=== PATIENT | female | born 1960 | race Caucasian/White ===

== ENCOUNTER 2016-06-16 20:02 | Emergency (ER) | payer OTHER ==
[~2016-06-16] VITALS: Ht 170.2 cm; Wt 118.2 kg
[~2016-06-16 20:02] MED LIST: BENA20 PO; FLUO-191 PO; Fluoxetine Hcl PO; METF500T4 PO; OLAN10TA3 PO; OLAN405V IM
[2016-06-16 20:25] LABS: GLUCOSE,POINT OF CARE 402 MG/DL (70-110)
[2016-06-16 20:38] LABS: BASOPHILS % (AUTO) 0.3 % (0.0-2.0); EOSINOPHILS % (AUTO) 1.7 % (1.0-6.0); HEMATOCRIT 41.2 % (36-46); HEMOGLOBIN 13.9 g/dL (12.0-16.0); LYMPHOCYTES # (AUTO) 2.3 K/uL (1.0-4.8); MEAN CORPUSCULAR HEMOGLOBIN 28.5 pg (26.0-34.0); MEAN CORPUSCULAR HGB CONC 33.7 G/dL (31.0-37.0); MEAN CORPUSCULAR VOLUME 85 fL (80-100); MONOCYTES # (AUTO) 0.6 K/uL (0.1-1.0); MONOCYTES % (AUTO) 7.8 % (2.0-9.0); NEUTROPHILS # (AUTO) 4.4 K/uL (1.8-7.7); NEUTROPHILS % (AUTO) 59.2 % (40.0-70.0); PLATELET COUNT (AUTO) 175 K/uL (150-450); RED BLOOD CELL COUNT(AUTO) 4.86 MIL/uL (4.00-5.20); RED CELL DISTRIBUTION WIDTH 13.5 % (11.5-14.5); WHITE BLOOD COUNT (AUTO) 7.5 K/uL (4.5-11.0)
[2016-06-16 20:43] LABS: ANION GAP 11 mmol/L (8-16); CALCIUM, TOTAL 9.4 mg/dL (8.8-10.5); CARBON DIOXIDE 30 mmol/L (22-29); CHLORIDE 97 mmol/L (98-107); CREATININE 0.95 mg/dL (0.60-1.30); GLOMERULAR FILTR. RATE CALC > 60 mL/min (>60); POTASSIUM 3.9 mmol/L (3.5-5.1); SODIUM SERUM 138 mmol/L (136-145); UREA NITROGEN, BLOOD 15 mg/dL (7-18)
[2016-06-16] MEDS ORDERED: INSULIN REGULAR, HUMAN 100 UNITS/ML SQ ONE (20:45)
[2016-06-16 20:49] LABS: ALANINE AMINOTRANSFERASE 29 U/L (12-78); ALBUMIN 3.8 g/dL (3.4-5.0); ASPARTATE AMINOTRANSFERASE 18 U/L (15-37); BILIRUBIN,TOTAL 0.2 mg/dL (0.1-1.0); TOTAL PROTEIN, SERUM 7.8 g/dL (6.4-8.2)
[2016-06-16] MEDS ORDERED: OLANZapine 5 MG TABLET PO ONE (21:00)
[2016-06-16 22:01] LABS: GLUCOSE,POINT OF CARE 404 MG/DL (70-110)
[2016-06-16 22:17] VITALS: BP 139/82
== END 2016-06-16 22:32 | disposition home or self-care (01) ==
LOC: EMS 20:03
DX: F20.9 Schizophrenia, unspecified (principal); R45.851 Suicidal ideations; E11.65 Type 2 diabetes mellitus with hyperglycemia; F32.9 Major depressive disorder, single episode, unspecified; I10 Essential (primary) hypertension; F17.210 Nicotine dependence, cigarettes, uncomplicated; F19.90 Other psychoactive substance use, unspecified, uncomplicated; Z88.6 Allergy status to analgesic agent
CPT/HCPCS: 36415; 80053; 80307; 82962; 85025; 96372; 99285; 99406; G0480; J1815

== ENCOUNTER 2017-08-14 00:28 | Inpatient (IN) | payer MEDICAID, OTHER ==
[~2017-08-14] VITALS: Ht 170.2 cm; Wt 86.2 kg
[2017-08-14 01:22] LABS: GLUCOSE,POINT OF CARE 439 MG/DL (70-110)
[2017-08-14 02:09] LABS: BASOPHILS % (AUTO) 0.5 % (0.0-2.0); EOSINOPHILS % (AUTO) 2.4 % (1.0-6.0); HEMATOCRIT 42.2 % (36-46); HEMOGLOBIN 14.1 g/dL (12.0-16.0); LYMPHOCYTES # (AUTO) 2.9 K/uL (1.0-4.8); LYMPHOCYTES % (AUTO) 42.7 % (22.0-44.0); MEAN CORPUSCULAR HEMOGLOBIN 27.6 pg (26.0-34.0); MEAN CORPUSCULAR HGB CONC 33.4 G/dL (31.0-37.0); MEAN CORPUSCULAR VOLUME 83 fL (80-100); MONOCYTES # (AUTO) 0.4 K/uL (0.1-1.0); NEUTROPHILS # (AUTO) 3.3 K/uL (1.8-7.7); NEUTROPHILS % (AUTO) 48.4 % (40.0-70.0); PLATELET COUNT (AUTO) 153 K/uL (150-450); RED CELL DISTRIBUTION WIDTH 14.1 % (11.5-14.5)
[2017-08-14 02:24] LABS: ALANINE AMINOTRANSFERASE 26 U/L (12-78); ALBUMIN 3.4 g/dL (3.4-5.0); ALKALINE PHOSPHATASE 151 U/L (46-116); ANION GAP 6 mmol/L (8-16); ASPARTATE AMINOTRANSFERASE 20 U/L (15-37); BILIRUBIN,TOTAL 0.3 mg/dL (0.1-1.0); CALCIUM, TOTAL 8.6 mg/dL (8.8-10.5); CARBON DIOXIDE 29 mmol/L (22-29); CHLORIDE 97 mmol/L (98-107); GLOMERULAR FILTR. RATE CALC > 60 mL/min (>60); POTASSIUM 4.1 mmol/L (3.5-5.1); SODIUM SERUM 132 mmol/L (136-145); TOTAL PROTEIN, SERUM 7.3 g/dL (6.4-8.2); UREA NITROGEN, BLOOD 15 mg/dL (7-18)
[2017-08-14 02:25] LABS: GLUCOSE,RANDOM 482 mg/dL (70-110)
[2017-08-14 02:28] LABS: AMPHET/METH SCREEN,URINE POSITIVE (NEGATIVE); BARBITURATE SCREEN, URINE NEGATIVE (NEGATIVE); BENZODIAZEPINES SCREEN,URINE NEGATIVE (NEGATIVE); CANNABINOID SCREEN,URINE NEGATIVE (NEGATIVE); COCAINE SCREEN,URINE NEGATIVE (NEGATIVE); METHADONE SCREEN, URINE NEGATIVE (NEGATIVE); OPIATE SCREEN,URINE NEGATIVE (NEGATIVE)
[2017-08-14 02:29] LABS: PHENCYCLIDINE SCREEN,URINE NEGATIVE (NEGATIVE)
[2017-08-14] MEDS ORDERED: INSULIN REGULAR, HUMAN 100 UNITS/ML SQ ONE (03:30)
[2017-08-14 04:28] LABS: GLUCOSE,POINT OF CARE 358 MG/DL (70-110)
[2017-08-14] MEDS ORDERED: LORazepam 1 MG TABLET PO ONE (04:30)
[2017-08-14] MEDS ORDERED: OLANZapine 5 MG TABLET PO ONE (04:30)
[2017-08-14] MEDS ORDERED: HALOPERIDOL 5 MG TABLET PO PRN (05:30)
[2017-08-14] MEDS ORDERED: ZOLPIDEM TARTRATE 10 MG TABLET PO PRN (05:30)
[2017-08-14] MEDS ORDERED: ACETAMINOPHEN 500 MG TABLET PO ONE (12:15)
[2017-08-14 18:18] LABS: GLUCOSE,POINT OF CARE 228 MG/DL (70-110)
[2017-08-14] MEDS ORDERED: DEXTROSE 50%-WATER 25 GM/50 ML SYRINGE IVP PRN (19:15)
[2017-08-14 19:38] VITALS: BP 121/83
[2017-08-14 21:52] LABS: GLUCOMETER DEV NAME(LOC) 3EI B; GLUCOSE,POINT OF CARE 279 MG/DL (70-110)
[2017-08-15 06:23] LABS: GLUCOMETER DEV NAME(LOC) 3EI B; GLUCOSE,POINT OF CARE 258 MG/DL (70-110)
[2017-08-15] MEDS: MetFORMIN HCL 500 MG TABLET PO SCH ×2 (06:49→17:30)
[2017-08-15] MEDS: INSULIN LISPRO 100 UNITS/ML SQ PRN (06:50)
[2017-08-15 07:26] LABS: HEMOGLOBIN A1C 12.1 % (4.5-6.2)
[2017-08-15 07:34] LABS: CHOL/HDL RATIO 2.1 (3.9-5.7)
[2017-08-15 08:00] VITALS: BP 121/60
[2017-08-15] MEDS: LORazepam 2 MG TABLET PO PRN (09:51)
[2017-08-15] MEDS: BENAZEPRIL HCL 20 MG TABLET PO SCH (09:51)
[2017-08-15 16:58] LABS: GLUCOMETER DEV NAME(LOC) 3EI B; GLUCOSE,POINT OF CARE 253 MG/DL (70-110)
[2017-08-15] MEDS: OLANZapine 10 MG TABLET PO SCH (21:00)
[2017-08-16] MEDS: MetFORMIN HCL 500 MG TABLET PO SCH ×2 (06:35→17:10)
[2017-08-16] MEDS: LORazepam 2 MG TABLET PO PRN (09:56)
[2017-08-16] MEDS: BENAZEPRIL HCL 20 MG TABLET PO SCH (09:56)
[2017-08-16] MEDS: FLUoxetine HCL 20 MG CAPSULE PO SCH (09:56)
[2017-08-16 11:48] LABS: GLUCOMETER DEV NAME(LOC) 3EI B; GLUCOSE,POINT OF CARE 223 MG/DL (70-110)
[2017-08-16] MEDS: INSULIN LISPRO 100 UNITS/ML SQ PRN ×2 (12:04→17:17)
[2017-08-16 17:17] LABS: GLUCOMETER DEV NAME(LOC) 3EI B; GLUCOSE,POINT OF CARE 228 MG/DL (70-110)
[2017-08-16] MEDS: OLANZapine 10 MG TABLET PO SCH (20:07)
[2017-08-16 20:42] LABS: GLUCOMETER DEV NAME(LOC) 3EI B; GLUCOSE,POINT OF CARE 107 MG/DL (70-110)
[2017-08-17] MEDS: MetFORMIN HCL 500 MG TABLET PO SCH ×2 (06:44→17:26)
[2017-08-17] MEDS: BENAZEPRIL HCL 20 MG TABLET PO SCH (10:46)
[2017-08-17] MEDS: FLUoxetine HCL 20 MG CAPSULE PO SCH (10:46)
[2017-08-17 11:43] LABS: GLUCOMETER DEV NAME(LOC) 3EI B; GLUCOSE,POINT OF CARE 197 MG/DL (70-110)
[2017-08-17] MEDS: INSULIN LISPRO 100 UNITS/ML SQ PRN ×3 (12:20→21:13)
[2017-08-17 17:23] LABS: GLUCOMETER DEV NAME(LOC) 3EI B; GLUCOSE,POINT OF CARE 172 MG/DL (70-110)
[2017-08-17 19:31] VITALS: BP 112/68
[2017-08-17] MEDS: OLANZapine 10 MG TABLET PO SCH (21:02)
[2017-08-17 21:12] LABS: GLUCOMETER DEV NAME(LOC) 3EI B; GLUCOSE,POINT OF CARE 162 MG/DL (70-110)
[2017-08-18 06:03] LABS: GLUCOMETER DEV NAME(LOC) 3EI B; GLUCOSE,POINT OF CARE 199 MG/DL (70-110)
[2017-08-18] MEDS: INSULIN LISPRO 100 UNITS/ML SQ PRN ×2 (06:38→13:21)
[2017-08-18] MEDS: MetFORMIN HCL 500 MG TABLET PO SCH ×2 (07:10→17:30)
[2017-08-18 09:35] VITALS: BP 104/59
[2017-08-18] MEDS: FLUoxetine HCL 20 MG CAPSULE PO SCH (09:58)
[2017-08-18] MEDS: BENAZEPRIL HCL 20 MG TABLET PO SCH (09:58)
[2017-08-18 11:17] LABS: GLUCOMETER DEV NAME(LOC) 3EI B; GLUCOSE,POINT OF CARE 180 MG/DL (70-110)
[2017-08-18] MEDS: OLANZapine 7.5 MG TABLET PO SCH (21:00)
[2017-08-18 22:17] VITALS: BP 95/54
[2017-08-19 05:43] LABS: GLUCOMETER DEV NAME(LOC) 3EI B; GLUCOSE,POINT OF CARE 213 MG/DL (70-110)
[2017-08-19] MEDS: MetFORMIN HCL 500 MG TABLET PO SCH ×2 (07:00→17:55)
[2017-08-19] MEDS: INSULIN LISPRO 100 UNITS/ML SQ PRN ×3 (07:13→17:30)
[2017-08-19 08:00] VITALS: BP 115/62
[2017-08-19] MEDS: FLUoxetine HCL 20 MG CAPSULE PO SCH (09:32)
[2017-08-19] MEDS: BENAZEPRIL HCL 20 MG TABLET PO SCH (09:32)
[2017-08-19 11:38] LABS: GLUCOMETER DEV NAME(LOC) 3EI B; GLUCOSE,POINT OF CARE 182 MG/DL (70-110)
[2017-08-19 16:43] LABS: GLUCOMETER DEV NAME(LOC) 3EI B; GLUCOSE,POINT OF CARE 158 MG/DL (70-110)
[2017-08-19 17:02] VITALS: BP 114/64
[2017-08-19] MEDS: OLANZapine 7.5 MG TABLET PO SCH (20:34)
[2017-08-20 05:47] LABS: GLUCOMETER DEV NAME(LOC) 3EI B; GLUCOSE,POINT OF CARE 202 MG/DL (70-110)
[2017-08-20] MEDS: MetFORMIN HCL 500 MG TABLET PO SCH ×2 (06:45→16:59)
[2017-08-20] MEDS: INSULIN LISPRO 100 UNITS/ML SQ PRN ×4 (06:52→21:14)
[2017-08-20 08:00] VITALS: BP 136/82
[2017-08-20] MEDS: FLUoxetine HCL 20 MG CAPSULE PO SCH (09:18)
[2017-08-20] MEDS: BENAZEPRIL HCL 20 MG TABLET PO SCH (09:18)
[2017-08-20 11:58] LABS: GLUCOMETER DEV NAME(LOC) 3EI B; GLUCOSE,POINT OF CARE 197 MG/DL (70-110)
[2017-08-20 17:12] LABS: GLUCOMETER DEV NAME(LOC) 3EI B; GLUCOSE,POINT OF CARE 259 MG/DL (70-110)
[2017-08-20 17:16] VITALS: BP 112/66
[2017-08-20] MEDS: OLANZapine 7.5 MG TABLET PO SCH (21:02)
[2017-08-20 21:18] LABS: GLUCOMETER DEV NAME(LOC) 3EI B; GLUCOSE,POINT OF CARE 192 MG/DL (70-110)
[2017-08-21 06:19] LABS: GLUCOMETER DEV NAME(LOC) 3EI B; GLUCOSE,POINT OF CARE 177 MG/DL (70-110)
[2017-08-21] MEDS: INSULIN LISPRO 100 UNITS/ML SQ PRN ×4 (06:57→21:20)
[2017-08-21] MEDS: MetFORMIN HCL 500 MG TABLET PO SCH ×2 (06:57→16:30)
[2017-08-21] MEDS: FLUoxetine HCL 20 MG CAPSULE PO SCH (09:37)
[2017-08-21] MEDS: BENAZEPRIL HCL 20 MG TABLET PO SCH (09:37)
[2017-08-21 10:33] VITALS: BP 124/86
[2017-08-21 11:48] LABS: GLUCOMETER DEV NAME(LOC) 3EI B; GLUCOSE,POINT OF CARE 157 MG/DL (70-110)
[2017-08-21 17:05] VITALS: BP 140/80
[2017-08-21 17:22] LABS: GLUCOMETER DEV NAME(LOC) 3EI B; GLUCOSE,POINT OF CARE 185 MG/DL (70-110)
[2017-08-21] MEDS: OLANZapine 7.5 MG TABLET PO SCH (20:51)
[2017-08-21 21:17] LABS: GLUCOMETER DEV NAME(LOC) 3EI B; GLUCOSE,POINT OF CARE 141 MG/DL (70-110)
[2017-08-22 06:32] LABS: GLUCOMETER DEV NAME(LOC) 3EI B; GLUCOSE,POINT OF CARE 192 MG/DL (70-110)
[2017-08-22] MEDS: INSULIN LISPRO 100 UNITS/ML SQ PRN ×4 (06:49→21:29)
[2017-08-22] MEDS: MetFORMIN HCL 500 MG TABLET PO SCH ×2 (06:50→17:21)
[2017-08-22 08:05] VITALS: BP 120/72
[2017-08-22] MEDS: FLUoxetine HCL 20 MG CAPSULE PO SCH (09:18)
[2017-08-22] MEDS: BENAZEPRIL HCL 20 MG TABLET PO SCH (09:18)
[2017-08-22 11:54] LABS: GLUCOMETER DEV NAME(LOC) 3EI B; GLUCOSE,POINT OF CARE 180 MG/DL (70-110)
[2017-08-22 17:32] LABS: GLUCOMETER DEV NAME(LOC) 3EI B; GLUCOSE,POINT OF CARE 176 MG/DL (70-110)
[2017-08-22 20:12] VITALS: BP 106/62
[2017-08-22] MEDS: OLANZapine 7.5 MG TABLET PO SCH (20:50)
[2017-08-22 21:17] LABS: GLUCOMETER DEV NAME(LOC) 3EI B; GLUCOSE,POINT OF CARE 198 MG/DL (70-110)
[2017-08-23 05:37] LABS: GLUCOMETER DEV NAME(LOC) 3EI B; GLUCOSE,POINT OF CARE 197 MG/DL (70-110)
[2017-08-23] MEDS: MetFORMIN HCL 500 MG TABLET PO SCH ×2 (06:52→17:51)
[2017-08-23] MEDS: INSULIN LISPRO 100 UNITS/ML SQ PRN ×3 (06:53→21:16)
[2017-08-23 08:00] VITALS: BP 145/89
[2017-08-23] MEDS: BENAZEPRIL HCL 20 MG TABLET PO SCH (09:37)
[2017-08-23] MEDS: FLUoxetine HCL 20 MG CAPSULE PO SCH (09:37)
[2017-08-23 11:17] LABS: GLUCOMETER DEV NAME(LOC) 3EI B; GLUCOSE,POINT OF CARE 248 MG/DL (70-110)
[2017-08-23 17:22] LABS: GLUCOMETER DEV NAME(LOC) 3EI B; GLUCOSE,POINT OF CARE 123 MG/DL (70-110)
[2017-08-23 21:07] LABS: GLUCOMETER DEV NAME(LOC) 3EI B; GLUCOSE,POINT OF CARE 373 MG/DL (70-110)
[2017-08-23] MEDS: OLANZapine 7.5 MG TABLET PO SCH (21:16)
[2017-08-24 05:22] LABS: GLUCOMETER DEV NAME(LOC) 3EI B; GLUCOSE,POINT OF CARE 225 MG/DL (70-110)
[2017-08-24] MEDS: MetFORMIN HCL 500 MG TABLET PO SCH ×2 (07:02→16:46)
[2017-08-24] MEDS: INSULIN LISPRO 100 UNITS/ML SQ PRN ×3 (07:02→21:24)
[2017-08-24] MEDS: BENAZEPRIL HCL 20 MG TABLET PO SCH (09:00)
[2017-08-24 09:16] VITALS: BP 112/38
[2017-08-24] MEDS: FLUoxetine HCL 20 MG CAPSULE PO SCH (09:54)
[2017-08-24 17:07] LABS: GLUCOMETER DEV NAME(LOC) 3EI B; GLUCOSE,POINT OF CARE 203 MG/DL (70-110)
[2017-08-24] MEDS: OLANZapine 7.5 MG TABLET PO SCH (21:14)
[2017-08-24 22:03] LABS: GLUCOMETER DEV NAME(LOC) 3EI B; GLUCOSE,POINT OF CARE 170 MG/DL (70-110)
[2017-08-25 05:28] LABS: GLUCOMETER DEV NAME(LOC) 3EI B; GLUCOSE,POINT OF CARE 221 MG/DL (70-110)
[2017-08-25] MEDS: MetFORMIN HCL 500 MG TABLET PO SCH ×2 (06:41→18:13)
[2017-08-25] MEDS: INSULIN LISPRO 100 UNITS/ML SQ PRN ×3 (06:49→18:14)
[2017-08-25] MEDS: BENAZEPRIL HCL 20 MG TABLET PO SCH (09:00)
[2017-08-25] MEDS: FLUoxetine HCL 20 MG CAPSULE PO SCH (09:59)
[2017-08-25 10:05] VITALS: BP 102/56
[2017-08-25 11:33] LABS: GLUCOMETER DEV NAME(LOC) 3EI B; GLUCOSE,POINT OF CARE 182 MG/DL (70-110)
[2017-08-25 16:56] LABS: GLUCOMETER DEV NAME(LOC) 3EI B; GLUCOSE,POINT OF CARE 172 MG/DL (70-110)
[2017-08-25 17:15] VITALS: BP 109/64
[2017-08-25 21:43] LABS: GLUCOMETER DEV NAME(LOC) 3EI B; GLUCOSE,POINT OF CARE 92 MG/DL (70-110)
[2017-08-25] MEDS: OLANZapine 7.5 MG TABLET PO SCH (21:47)
[2017-08-26 05:37] LABS: GLUCOMETER DEV NAME(LOC) 3EI B; GLUCOSE,POINT OF CARE 183 MG/DL (70-110)
[2017-08-26] MEDS: MetFORMIN HCL 500 MG TABLET PO SCH ×2 (06:42→17:29)
[2017-08-26] MEDS: INSULIN LISPRO 100 UNITS/ML SQ PRN ×4 (06:43→21:44)
[2017-08-26 09:17] VITALS: BP 109/56
[2017-08-26] MEDS: FLUoxetine HCL 20 MG CAPSULE PO SCH (10:11)
[2017-08-26] MEDS: BENAZEPRIL HCL 20 MG TABLET PO SCH (10:12)
[2017-08-26 16:44] VITALS: BP 98/57
[2017-08-26 16:58] LABS: GLUCOMETER DEV NAME(LOC) 3EI B; GLUCOSE,POINT OF CARE 270 MG/DL (70-110)
[2017-08-26] MEDS: OLANZapine 7.5 MG TABLET PO SCH (20:32)
[2017-08-26 20:43] LABS: GLUCOMETER DEV NAME(LOC) 3EI B; GLUCOSE,POINT OF CARE 224 MG/DL (70-110)
[2017-08-27 05:53] LABS: GLUCOMETER DEV NAME(LOC) 3EI B; GLUCOSE,POINT OF CARE 189 MG/DL (70-110)
[2017-08-27] MEDS: INSULIN LISPRO 100 UNITS/ML SQ PRN ×4 (06:49→20:28)
[2017-08-27] MEDS: MetFORMIN HCL 500 MG TABLET PO SCH ×2 (06:50→17:22)
[2017-08-27 09:17] VITALS: BP 119/71
[2017-08-27] MEDS: BENAZEPRIL HCL 20 MG TABLET PO SCH (09:21)
[2017-08-27] MEDS: FLUoxetine HCL 20 MG CAPSULE PO SCH (09:21)
[2017-08-27 11:43] LABS: GLUCOMETER DEV NAME(LOC) 3EI B; GLUCOSE,POINT OF CARE 157 MG/DL (70-110)
[2017-08-27 16:08] VITALS: BP 102/52
[2017-08-27 17:03] LABS: GLUCOMETER DEV NAME(LOC) 3EI B; GLUCOSE,POINT OF CARE 189 MG/DL (70-110)
[2017-08-27] MEDS: OLANZapine 7.5 MG TABLET PO SCH (20:27)
[2017-08-27 20:42] LABS: GLUCOMETER DEV NAME(LOC) 3EI B; GLUCOSE,POINT OF CARE 195 MG/DL (70-110)
[2017-08-28 05:33] LABS: GLUCOMETER DEV NAME(LOC) 3EI B; GLUCOSE,POINT OF CARE 191 MG/DL (70-110)
[2017-08-28] MEDS: MetFORMIN HCL 500 MG TABLET PO SCH (06:43)
[2017-08-28] MEDS: INSULIN LISPRO 100 UNITS/ML SQ PRN ×2 (07:06→12:01)
[2017-08-28 08:00] VITALS: BP 110/70
[2017-08-28] MEDS ORDERED: FLUO-191 PO (09:02)
[2017-08-28] MEDS ORDERED: OLAN7.5T9 PO (09:02)
[2017-08-28] MEDS: BENAZEPRIL HCL 20 MG TABLET PO SCH (09:23)
[2017-08-28] MEDS: FLUoxetine HCL 20 MG CAPSULE PO SCH (09:24)
[2017-08-28 12:03] LABS: GLUCOMETER DEV NAME(LOC) 3EI B; GLUCOSE,POINT OF CARE 215 MG/DL (70-110)
== END 2017-08-28 14:20 | disposition home or self-care (01) | DRG 750 ==
LOC: EMS 00:29 → 3EI 17:30
DX: F25.1 Schizoaffective disorder, depressive type (principal); R45.851 Suicidal ideations; B19.10 Unspecified viral hepatitis B without hepatic coma; E11.65 Type 2 diabetes mellitus with hyperglycemia; F32.9 Major depressive disorder, single episode, unspecified; I10 Essential (primary) hypertension; B15.9 Hepatitis A without hepatic coma; F15.10 Other stimulant abuse, uncomplicated; J44.9 Chronic obstructive pulmonary disease, unspecified; F17.210 Nicotine dependence, cigarettes, uncomplicated; Z79.899 Other long term (current) drug therapy; Z88.5 Allergy status to narcotic agent
CPT/HCPCS: 82962; 83036; 96372; 99285; G0480; J1815

== ENCOUNTER 2017-12-09 10:40 | Inpatient (IN) | payer MEDICAID, OTHER ==
[~2017-12-09] VITALS: Ht 175.3 cm; Wt 88.5 kg
[~2017-12-09 10:40] MED LIST changes: -Fluoxetine Hcl PO; -METF500T4 PO; +METF500T6 PO; -OLAN10TA3 PO; -OLAN405V IM; +OLAN7.5T9 PO
[2017-12-09] MEDS ORDERED: LORazepam 2 MG TABLET PO ONE (12:15)
[2017-12-09] MEDS ORDERED: HALOPERIDOL 5 MG TABLET PO ONE (12:15)
[2017-12-09] MEDS ORDERED: VENL25TA47 PO (12:16)
[2017-12-09] MEDS ORDERED: BENZ0.5T44 PO (12:16)
[2017-12-09 12:51] LABS: BASOPHILS % (AUTO) 0.5 % (0.0-2.0); EOSINOPHILS % (AUTO) 3.9 % (1.0-6.0); HEMATOCRIT 36.9 % (36-46); HEMOGLOBIN 12.8 g/dL (12.0-16.0); LYMPHOCYTES # (AUTO) 2.2 K/uL (1.0-4.8); LYMPHOCYTES % (AUTO) 41.2 % (22.0-44.0); MEAN CORPUSCULAR HEMOGLOBIN 28.3 pg (26.0-34.0); MEAN CORPUSCULAR HGB CONC 34.7 G/dL (31.0-37.0); MEAN CORPUSCULAR VOLUME 82 fL (80-100); MONOCYTES # (AUTO) 0.4 K/uL (0.1-1.0); MONOCYTES % (AUTO) 7.3 % (2.0-9.0); NEUTROPHILS # (AUTO) 2.5 K/uL (1.8-7.7); NEUTROPHILS % (AUTO) 47.1 % (40.0-70.0); PLATELET COUNT (AUTO) 153 K/uL (150-450); RED BLOOD CELL COUNT(AUTO) 4.52 MIL/uL (4.00-5.20); RED CELL DISTRIBUTION WIDTH 14.3 % (11.5-14.5)
[2017-12-09 13:00] LABS: AMPHET/METH SCREEN,URINE POSITIVE (NEGATIVE); BARBITURATE SCREEN, URINE NEGATIVE (NEGATIVE); BENZODIAZEPINES SCREEN,URINE NEGATIVE (NEGATIVE); CANNABINOID SCREEN,URINE NEGATIVE (NEGATIVE); COCAINE SCREEN,URINE NEGATIVE (NEGATIVE); METHADONE SCREEN, URINE NEGATIVE (NEGATIVE); OPIATE SCREEN,URINE NEGATIVE (NEGATIVE); PHENCYCLIDINE SCREEN,URINE NEGATIVE (NEGATIVE)
[2017-12-09 13:01] LABS: ANION GAP 11 mmol/L (8-16); CARBON DIOXIDE 25 mmol/L (22-29); CHLORIDE 99 mmol/L (98-107); CREATININE 0.62 mg/dL (0.60-1.30); GLOMERULAR FILTR. RATE CALC > 60 mL/min (>60); GLUCOSE,RANDOM 280 mg/dL (70-110); POTASSIUM 3.7 mmol/L (3.5-5.1); SODIUM SERUM 135 mmol/L (136-145); UREA NITROGEN, BLOOD 16 mg/dL (7-18)
[2017-12-09 13:07] LABS: ALANINE AMINOTRANSFERASE 27 U/L (12-78); ALBUMIN 3.2 g/dL (3.4-5.0); ALKALINE PHOSPHATASE 152 U/L (46-116); ASPARTATE AMINOTRANSFERASE 18 U/L (15-37); BILIRUBIN,TOTAL 0.3 mg/dL (0.1-1.0); TOTAL PROTEIN, SERUM 6.8 g/dL (6.4-8.2)
[2017-12-09] MEDS ORDERED: HALOPERIDOL 5 MG TABLET PO PRN (14:00)
[2017-12-09] MEDS ORDERED: ZOLPIDEM TARTRATE 10 MG TABLET PO PRN (14:00)
[2017-12-09 16:28] LABS: GLUCOSE,POINT OF CARE 312 MG/DL (70-110)
[2017-12-09 19:30] VITALS: BP 117/69
[2017-12-09] MEDS: OLANZapine 7.5 MG TABLET PO SCH (20:35)
[2017-12-09 20:44] LABS: GLUCOMETER DEV NAME(LOC) BV2S 2; GLUCOSE,POINT OF CARE 216 MG/DL (70-110)
[2017-12-09] MEDS ORDERED: CloNIDine HCL 0.1 MG TABLET PO PRN (20:45)
[2017-12-09] MEDS ORDERED: GuaiFENesin/D-METHORPHAN [SUGAR-FREE] 200-20MG/10 ML SYRUP UDCUP PO PRN (20:45)
[2017-12-09] MEDS ORDERED: ACETAMINOPHEN 325 MG TABLET PO PRN (20:45)
[2017-12-09] MEDS ORDERED: MAG HYDROX/AL HYDROX/SIMETH ES 30 ML SUSPENSION UDCUP PO PRN (20:45)
[2017-12-09] MEDS ORDERED: MAGNESIUM HYDROXIDE SUSPENSION 30 ML UDCUP PO PRN (20:45)
[2017-12-09] MEDS ORDERED: PETROLATUM,WHITE 71 GM JELLY TP PRN (20:45)
[2017-12-09] MEDS ORDERED: LOPERAMIDE HCL 2 MG CAPSULE PO PRN (20:45)
[2017-12-09] MEDS ORDERED: GLUCAGON,HUMAN RECOMBINANT 1 MG VIAL IM PRN (21:00)
[2017-12-09] MEDS: INSULIN LISPRO 100 UNITS/ML SQ PRN (21:00)
[2017-12-10] MEDS ORDERED: PNEUMOCOCCAL VACCINE POLYVALENT 0.5 ML VIAL [PPSV23] IM ONE (00:45)
[2017-12-10 01:33] VITALS: BP 121/62
[2017-12-10 08:26] VITALS: BP 120/77
[2017-12-10] MEDS: FLUoxetine HCL 20 MG CAPSULE PO SCH (08:46)
[2017-12-10] MEDS: NICOTINE 21 MG/24 HOUR PATCH TD SCH (08:50)
[2017-12-10] MEDS: LORazepam 2 MG TABLET PO PRN (10:00)
[2017-12-10] MEDS: INSULIN LISPRO 100 UNITS/ML SQ PRN ×3 (11:22→20:24)
[2017-12-10 14:55] LABS: GLUCOMETER DEV NAME(LOC) BV2S 2; GLUCOSE,POINT OF CARE 256 MG/DL (70-110)
[2017-12-10 16:12] VITALS: BP 120/65
[2017-12-10] MEDS: MetFORMIN HCL 500 MG TABLET PO SCH (16:29)
[2017-12-10 16:43] LABS: GLUCOMETER DEV NAME(LOC) BV2S 2; GLUCOSE,POINT OF CARE 195 MG/DL (70-110)
[2017-12-10] MEDS: OLANZapine 7.5 MG TABLET PO SCH (20:21)
[2017-12-10 20:39] LABS: GLUCOMETER DEV NAME(LOC) BV2S 2; GLUCOSE,POINT OF CARE 208 MG/DL (70-110)
[2017-12-11 02:15] VITALS: BP 121/68
[2017-12-11 06:19] LABS: GLUCOMETER DEV NAME(LOC) BV2S 2; GLUCOSE,POINT OF CARE 235 MG/DL (70-110)
[2017-12-11] MEDS: MetFORMIN HCL 500 MG TABLET PO SCH ×2 (06:59→16:38)
[2017-12-11] MEDS: INSULIN LISPRO 100 UNITS/ML SQ PRN ×4 (07:00→20:39)
[2017-12-11 08:01] VITALS: BP 117/74
[2017-12-11] MEDS: NICOTINE 21 MG/24 HOUR PATCH TD SCH (09:00)
[2017-12-11 09:02] LABS: HEMOGLOBIN A1C 11.3 % (4.5-6.2)
[2017-12-11] MEDS: BENAZEPRIL HCL 20 MG TABLET PO SCH (09:10)
[2017-12-11] MEDS: FLUoxetine HCL 20 MG CAPSULE PO SCH (09:10)
[2017-12-11 10:04] LABS: CHOL/HDL RATIO 2.2 (3.9-5.7); THYROID STIMULATING HORMONE 1.67 uIU/mL (0.36-3.74)
[2017-12-11] MEDS: LORazepam 2 MG TABLET PO PRN (10:44)
[2017-12-11 14:23] LABS: GLUCOMETER DEV NAME(LOC) BV2S 2; GLUCOSE,POINT OF CARE 195 MG/DL (70-110)
[2017-12-11 16:42] VITALS: BP 107/79
[2017-12-11 16:59] LABS: GLUCOMETER DEV NAME(LOC) BV2S 2; GLUCOSE,POINT OF CARE 308 MG/DL (70-110)
[2017-12-11] MEDS: OLANZapine 10 MG TABLET PO SCH (20:30)
[2017-12-11 20:53] LABS: GLUCOMETER DEV NAME(LOC) BV2S 2; GLUCOSE,POINT OF CARE 162 MG/DL (70-110)
[2017-12-12 05:17] VITALS: BP 110/68
[2017-12-12 06:04] LABS: GLUCOMETER DEV NAME(LOC) BV2S 2; GLUCOSE,POINT OF CARE 195 MG/DL (70-110)
[2017-12-12] MEDS: MetFORMIN HCL 500 MG TABLET PO SCH ×2 (06:29→16:21)
[2017-12-12] MEDS: INSULIN LISPRO 100 UNITS/ML SQ PRN ×4 (06:30→20:40)
[2017-12-12 08:18] VITALS: BP 110/61
[2017-12-12] MEDS: NICOTINE 21 MG/24 HOUR PATCH TD SCH (09:00)
[2017-12-12] MEDS: BENAZEPRIL HCL 20 MG TABLET PO SCH (09:08)
[2017-12-12] MEDS: FLUoxetine HCL 20 MG CAPSULE PO SCH (09:08)
[2017-12-12 13:18] LABS: GLUCOMETER DEV NAME(LOC) BV2S 2; GLUCOSE,POINT OF CARE 224 MG/DL (70-110)
[2017-12-12 16:00] VITALS: BP 109/67
[2017-12-12 16:38] LABS: GLUCOMETER DEV NAME(LOC) BV2S 2; GLUCOSE,POINT OF CARE 229 MG/DL (70-110)
[2017-12-12] MEDS: LORazepam 2 MG TABLET PO PRN (17:56)
[2017-12-12] MEDS: OLANZapine 10 MG TABLET PO SCH (20:34)
[2017-12-12 20:48] LABS: GLUCOMETER DEV NAME(LOC) BV2S 2; GLUCOSE,POINT OF CARE 253 MG/DL (70-110)
[2017-12-13 05:41] VITALS: BP 110/68
[2017-12-13] MEDS: MetFORMIN HCL 500 MG TABLET PO SCH ×2 (06:36→17:08)
[2017-12-13] MEDS: INSULIN LISPRO 100 UNITS/ML SQ PRN ×4 (06:37→20:51)
[2017-12-13 06:43] LABS: GLUCOMETER DEV NAME(LOC) BV2S 2; GLUCOSE,POINT OF CARE 212 MG/DL (70-110)
[2017-12-13 08:03] VITALS: BP 111/52
[2017-12-13] MEDS: FLUoxetine HCL 20 MG CAPSULE PO SCH (08:15)
[2017-12-13] MEDS: BENAZEPRIL HCL 20 MG TABLET PO SCH (08:15)
[2017-12-13] MEDS: NICOTINE 21 MG/24 HOUR PATCH TD SCH (08:18)
[2017-12-13 11:43] LABS: GLUCOMETER DEV NAME(LOC) BV2S 2; GLUCOSE,POINT OF CARE 169 MG/DL (70-110)
[2017-12-13 16:09] VITALS: BP 112/65
[2017-12-13 16:49] LABS: GLUCOMETER DEV NAME(LOC) BV2S 2; GLUCOSE,POINT OF CARE 184 MG/DL (70-110)
[2017-12-13] MEDS: OLANZapine 10 MG TABLET PO SCH (20:32)
[2017-12-13 20:48] LABS: GLUCOMETER DEV NAME(LOC) BV2S 2; GLUCOSE,POINT OF CARE 163 MG/DL (70-110)
[2017-12-14 00:35] VITALS: BP 112/67
[2017-12-14] MEDS: LORazepam 2 MG TABLET PO PRN ×2 (00:39→16:57)
[2017-12-14 06:14] LABS: GLUCOMETER DEV NAME(LOC) BV2S 2; GLUCOSE,POINT OF CARE 177 MG/DL (70-110)
[2017-12-14] MEDS: MetFORMIN HCL 500 MG TABLET PO SCH ×2 (06:52→16:29)
[2017-12-14] MEDS: INSULIN LISPRO 100 UNITS/ML SQ PRN ×4 (06:55→20:45)
[2017-12-14] MEDS: NICOTINE 21 MG/24 HOUR PATCH TD SCH (09:00)
[2017-12-14 09:02] VITALS: BP 116/67
[2017-12-14] MEDS: FLUoxetine HCL 20 MG CAPSULE PO SCH (09:51)
[2017-12-14] MEDS: BENAZEPRIL HCL 20 MG TABLET PO SCH (09:51)
[2017-12-14 11:59] LABS: GLUCOMETER DEV NAME(LOC) BV2S 2; GLUCOSE,POINT OF CARE 218 MG/DL (70-110)
[2017-12-14 16:08] VITALS: BP 109/65
[2017-12-14 16:58] LABS: GLUCOMETER DEV NAME(LOC) BV2S 2; GLUCOSE,POINT OF CARE 172 MG/DL (70-110)
[2017-12-14] MEDS: OLANZapine 10 MG TABLET PO SCH (20:16)
[2017-12-14 20:54] LABS: GLUCOMETER DEV NAME(LOC) BV2S 2; GLUCOSE,POINT OF CARE 217 MG/DL (70-110)
[2017-12-15 00:09] VITALS: BP 118/62
[2017-12-15] MEDS: MetFORMIN HCL 500 MG TABLET PO SCH ×2 (07:02→16:29)
[2017-12-15 08:14] VITALS: BP 111/60
[2017-12-15] MEDS: BENAZEPRIL HCL 20 MG TABLET PO SCH (09:00)
[2017-12-15] MEDS: NICOTINE 21 MG/24 HOUR PATCH TD SCH (09:00)
[2017-12-15] MEDS: FLUoxetine HCL 20 MG CAPSULE PO SCH (09:56)
[2017-12-15 10:00] VITALS: BP 109/56
[2017-12-15] MEDS: INSULIN LISPRO 100 UNITS/ML SQ PRN ×3 (11:45→20:12)
[2017-12-15 11:48] LABS: GLUCOMETER DEV NAME(LOC) BV2S 2; GLUCOSE,POINT OF CARE 191 MG/DL (70-110)
[2017-12-15] MEDS: LORazepam 2 MG TABLET PO PRN (16:31)
[2017-12-15 17:04] LABS: GLUCOMETER DEV NAME(LOC) BV2S 2; GLUCOSE,POINT OF CARE 239 MG/DL (70-110)
[2017-12-15 17:56] VITALS: BP 123/72
[2017-12-15] MEDS: OLANZapine 10 MG TABLET PO SCH (20:04)
[2017-12-15 20:38] LABS: GLUCOMETER DEV NAME(LOC) BV2S 2; GLUCOSE,POINT OF CARE 188 MG/DL (70-110)
[2017-12-16 00:31] VITALS: BP 115/62
[2017-12-16] MEDS ORDERED: OLAN10TA3 PO (01:46)
[2017-12-16] MEDS ORDERED: BENA20 PO (01:46)
[2017-12-16] MEDS ORDERED: FLUO-191 PO (01:46)
[2017-12-16] MEDS ORDERED: METF500T6 PO (01:46)
[2017-12-16 06:19] LABS: GLUCOMETER DEV NAME(LOC) BV2S 2; GLUCOSE,POINT OF CARE 217 MG/DL (70-110)
[2017-12-16] MEDS: MetFORMIN HCL 500 MG TABLET PO SCH (07:02)
[2017-12-16] MEDS: INSULIN LISPRO 100 UNITS/ML SQ PRN (07:03)
[2017-12-16] MEDS: FLUoxetine HCL 20 MG CAPSULE PO SCH (08:09)
[2017-12-16] MEDS: BENAZEPRIL HCL 20 MG TABLET PO SCH (08:09)
[2017-12-16] MEDS: NICOTINE 21 MG/24 HOUR PATCH TD SCH (08:15)
[2017-12-16 08:24] VITALS: BP 121/78
== END 2017-12-16 09:45 | disposition home or self-care (01) | DRG 750 ==
LOC: EMS 10:41 → B2S 18:19
PROVIDERS: ADMIT Psychiatry & Neurology Psychiatry; ATTEND Psychiatry & Neurology Psychiatry
DX: F25.1 Schizoaffective disorder, depressive type (principal); R45.851 Suicidal ideations; B19.10 Unspecified viral hepatitis B without hepatic coma; F15.20 Other stimulant dependence, uncomplicated; E11.9 Type 2 diabetes mellitus without complications; R45.87 Impulsiveness; F60.3 Borderline personality disorder; I10 Essential (primary) hypertension; J44.9 Chronic obstructive pulmonary disease, unspecified; B15.9 Hepatitis A without hepatic coma; F41.9 Anxiety disorder, unspecified; F17.200 Nicotine dependence, unspecified, uncomplicated; Z88.6 Allergy status to analgesic agent; Z59.0 Homelessness; Z71.89 Other specified counseling; Z79.899 Other long term (current) drug therapy
CPT/HCPCS: 83036; 84443; 87081; 90471; 99285; G0480

== ENCOUNTER 2018-04-10 00:07 | Inpatient (IN) | payer MEDICAID, OTHER ==
[~2018-04-10] VITALS: Ht 170.2 cm; Wt 97.1 kg
[~2018-04-10 00:07] MED LIST changes: +METF-960 PO; -METF500T6 PO; +OLAN10TA3 PO; -OLAN7.5T9 PO
[2018-04-10 00:48] LABS: BASOPHILS % (AUTO) 0.4 % (0.0-2.0); EOSINOPHILS % (AUTO) 3.8 % (1.0-6.0); HEMATOCRIT 43.7 % (36-46); HEMOGLOBIN 14.6 g/dL (12.0-16.0); LYMPHOCYTES # (AUTO) 2.9 K/uL (1.0-4.8); LYMPHOCYTES % (AUTO) 38.1 % (22.0-44.0); MEAN CORPUSCULAR HEMOGLOBIN 28.3 pg (26.0-34.0); MEAN CORPUSCULAR HGB CONC 33.4 G/dL (31.0-37.0); MEAN CORPUSCULAR VOLUME 85 fL (80-100); MONOCYTES # (AUTO) 0.5 K/uL (0.1-1.0); MONOCYTES % (AUTO) 6.5 % (2.0-9.0); NEUTROPHILS # (AUTO) 3.9 K/uL (1.8-7.7); NEUTROPHILS % (AUTO) 51.2 % (40.0-70.0); PLATELET COUNT (AUTO) 193 K/uL (150-450); RED BLOOD CELL COUNT(AUTO) 5.17 MIL/uL (4.00-5.20); RED CELL DISTRIBUTION WIDTH 14.1 % (11.5-14.5)
[2018-04-10 01:07] LABS: AMPHET/METH SCREEN,URINE POSITIVE (NEGATIVE); BARBITURATE SCREEN, URINE NEGATIVE (NEGATIVE); BENZODIAZEPINES SCREEN,URINE NEGATIVE (NEGATIVE); CANNABINOID SCREEN,URINE NEGATIVE (NEGATIVE); COCAINE SCREEN,URINE NEGATIVE (NEGATIVE); METHADONE SCREEN, URINE NEGATIVE (NEGATIVE); OPIATE SCREEN,URINE NEGATIVE (NEGATIVE)
[2018-04-10 01:08] LABS: ALANINE AMINOTRANSFERASE 36 U/L (12-78); ALBUMIN 3.4 g/dL (3.4-5.0); ALKALINE PHOSPHATASE 170 U/L (46-116); ANION GAP 9 mmol/L (8-16); ASPARTATE AMINOTRANSFERASE 20 U/L (15-37); BILIRUBIN,TOTAL 0.2 mg/dL (0.1-1.0); CALCIUM, TOTAL 8.9 mg/dL (8.8-10.5); CARBON DIOXIDE 29 mmol/L (22-29); CHLORIDE 96 mmol/L (98-107); CREATININE 0.89 mg/dL (0.60-1.30); GLOMERULAR FILTR. RATE CALC > 60 mL/min (>60); POTASSIUM 3.8 mmol/L (3.5-5.1); SODIUM SERUM 134 mmol/L (136-145); TOTAL PROTEIN, SERUM 7.3 g/dL (6.4-8.2); UREA NITROGEN, BLOOD 9 mg/dL (7-18)
[2018-04-10 01:10] LABS: GLUCOSE,RANDOM 549 mg/dL (70-110)
[2018-04-10 01:11] LABS: PHENCYCLIDINE SCREEN,URINE NEGATIVE (NEGATIVE)
[2018-04-10] MEDS ORDERED: SODIUM CHLORIDE 0.9% 1,000 ML IV ONE (01:15)
[2018-04-10] MEDS ORDERED: INSULIN REGULAR, HUMAN 100 UNITS/ML IVP ONE (01:15)
[2018-04-10 01:49] LABS: GLUCOSE,POINT OF CARE 517 MG/DL (70-110)
[2018-04-10 02:24] LABS: GLUCOSE,POINT OF CARE 296 MG/DL (70-110)
[2018-04-10] MEDS ORDERED: ZOLPIDEM TARTRATE 10 MG TABLET PO PRN (02:45)
[2018-04-10] MEDS ORDERED: HALOPERIDOL 5 MG TABLET PO PRN (02:45)
[2018-04-10] MEDS ORDERED: LORazepam 2 MG TABLET PO PRN (02:45)
[2018-04-10 04:07] VITALS: BP 106/83
[2018-04-10 05:16] LABS: APPEARANCE,URINE CLEAR (CLEAR); BILIRUBIN,URINE NEGATIVE (NEGATIVE); GLUCOSE, URINE (UA) >=1000 mg/dL (NEGATIVE); KETONES,URINE NEGATIVE (NEGATIVE); LEUKOCYTE ESTERASE ,URINE NEGATIVE (NEGATIVE); NITRATE,URINE NEGATIVE (NEGATIVE); OCCULT BLOOD,URINE NEGATIVE (NEGATIVE); PH,URINE 5.5 (5.0-8.0); PROTEIN,URINE NEGATIVE (NEGATIVE); UROBILINOGEN,URINE 0.2 mg/dL (<=1.0)
[2018-04-10 06:07] LABS: RBC,URINE 0-2 /HPF (0-2)
[2018-04-10 06:08] LABS: BACTERIA,URINE Rare /HPF (None Seen); SQUAMOUS EPITHELIAL CELL,UR Moderate /LPF (None Seen)
[2018-04-10 06:39] LABS: GLUCOMETER DEV NAME(LOC) 3E.I; GLUCOSE,POINT OF CARE 278 MG/DL (70-110)
[2018-04-10] MEDS ORDERED: DEXTROSE 50%-WATER 25 GM/50 ML SYRINGE IVP PRN (07:30)
[2018-04-10] MEDS ORDERED: INSULIN GLARGINE,HUM.REC.ANLOG 100 UNITS/ML SQ SCH (09:00)
[2018-04-10 11:34] LABS: GLUCOMETER DEV NAME(LOC) 3E.I; GLUCOSE,POINT OF CARE 315 MG/DL (70-110)
[2018-04-10] MEDS: INSULIN LISPRO 100 UNITS/ML SQ PRN ×3 (11:44→21:49)
[2018-04-10] MEDS ORDERED: FLUCONAZOLE 150 MG TABLET PO ONE (13:00)
[2018-04-10] MEDS ORDERED: CloNIDine HCL 0.1 MG TABLET PO PRN (13:00)
[2018-04-10] MEDS: MetFORMIN HCL 500 MG TABLET PO SCH (16:52)
[2018-04-10 17:04] LABS: GLUCOMETER DEV NAME(LOC) 3E.I; GLUCOSE,POINT OF CARE 239 MG/DL (70-110)
[2018-04-10] MEDS: OLANZapine 10 MG TABLET PO SCH (21:48)
[2018-04-10 21:49] LABS: GLUCOMETER DEV NAME(LOC) 3E.I; GLUCOSE,POINT OF CARE 274 MG/DL (70-110)
[2018-04-11 05:35] LABS: GLUCOMETER DEV NAME(LOC) 3E.I; GLUCOSE,POINT OF CARE 226 MG/DL (70-110)
[2018-04-11] MEDS: MetFORMIN HCL 500 MG TABLET PO SCH ×2 (07:15→17:17)
[2018-04-11] MEDS: INSULIN LISPRO 100 UNITS/ML SQ PRN ×3 (07:17→21:45)
[2018-04-11 07:24] LABS: CHOL/HDL RATIO 1.8 (3.9-5.7); FREE T4 (FREE THYROXINE) 1.12 ng/dL (0.76-1.46); THYROID STIMULATING HORMONE 2.13 uIU/mL (0.36-3.74)
[2018-04-11 07:42] LABS: HEMOGLOBIN A1C 10.1 % (4.5-6.2)
[2018-04-11 08:22] VITALS: BP 112/73
[2018-04-11] MEDS: MULTIVITAMINS WITH MINERALS, THERAPEUTIC TABLET PO SCH (08:30)
[2018-04-11] MEDS: INSULIN GLARGINE,HUM.REC.ANLOG 100 UNITS/ML SQ SCH (08:32)
[2018-04-11 11:38] LABS: GLUCOMETER DEV NAME(LOC) 3E.I; GLUCOSE,POINT OF CARE 136 MG/DL (70-110)
[2018-04-11] MEDS ORDERED: DiphenhydrAMINE HCL 25 MG CAPSULE PO PRN (16:00)
[2018-04-11 16:34] LABS: GLUCOMETER DEV NAME(LOC) 3E.I; GLUCOSE,POINT OF CARE 168 MG/DL (70-110)
[2018-04-11 17:44] VITALS: BP 125/81
[2018-04-11] MEDS: OLANZapine 10 MG TABLET PO SCH (21:38)
[2018-04-11 21:49] LABS: GLUCOMETER DEV NAME(LOC) 3E.I; GLUCOSE,POINT OF CARE 132 MG/DL (70-110)
[2018-04-12 06:04] LABS: GLUCOMETER DEV NAME(LOC) 3E.I; GLUCOSE,POINT OF CARE 145 MG/DL (70-110)
[2018-04-12] MEDS: MetFORMIN HCL 500 MG TABLET PO SCH ×2 (06:46→16:18)
[2018-04-12] MEDS: INSULIN LISPRO 100 UNITS/ML SQ PRN ×4 (06:47→20:40)
[2018-04-12 08:53] LABS: GLUCOMETER DEV NAME(LOC) 3E.I; GLUCOSE,POINT OF CARE 143 MG/DL (70-110)
[2018-04-12] MEDS: MULTIVITAMINS WITH MINERALS, THERAPEUTIC TABLET PO SCH (09:26)
[2018-04-12] MEDS: INSULIN GLARGINE,HUM.REC.ANLOG 100 UNITS/ML SQ SCH (09:28)
[2018-04-12 11:50] LABS: GLUCOMETER DEV NAME(LOC) 3E.I; GLUCOSE,POINT OF CARE 123 MG/DL (70-110)
[2018-04-12 17:24] LABS: GLUCOMETER DEV NAME(LOC) 3E.I; GLUCOSE,POINT OF CARE 137 MG/DL (70-110)
[2018-04-12 19:27] VITALS: BP 144/79
[2018-04-12] MEDS: OLANZapine 10 MG TABLET PO SCH (20:30)
[2018-04-12 20:54] LABS: GLUCOMETER DEV NAME(LOC) 3E.I; GLUCOSE,POINT OF CARE 122 MG/DL (70-110)
[2018-04-13 06:13] LABS: GLUCOMETER DEV NAME(LOC) 3E.I; GLUCOSE,POINT OF CARE 118 MG/DL (70-110)
[2018-04-13] MEDS: MetFORMIN HCL 500 MG TABLET PO SCH ×3 (06:51→16:38)
[2018-04-13] MEDS: MULTIVITAMINS WITH MINERALS, THERAPEUTIC TABLET PO SCH (09:53)
[2018-04-13] MEDS: INSULIN GLARGINE,HUM.REC.ANLOG 100 UNITS/ML SQ SCH (09:54)
[2018-04-13 09:59] LABS: GLUCOMETER DEV NAME(LOC) 3E.I; GLUCOSE,POINT OF CARE 184 MG/DL (70-110)
[2018-04-13 11:43] LABS: GLUCOMETER DEV NAME(LOC) 3E.I; GLUCOSE,POINT OF CARE 218 MG/DL (70-110)
[2018-04-13] MEDS: INSULIN LISPRO 100 UNITS/ML SQ PRN (11:50)
[2018-04-13 12:51] VITALS: BP 133/78
[2018-04-13 17:04] LABS: GLUCOMETER DEV NAME(LOC) 3E.I; GLUCOSE,POINT OF CARE 119 MG/DL (70-110)
[2018-04-13] MEDS: OLANZapine 10 MG TABLET PO SCH (20:12)
[2018-04-14 06:04] LABS: GLUCOMETER DEV NAME(LOC) 3E.I; GLUCOSE,POINT OF CARE 206 MG/DL (70-110)
[2018-04-14] MEDS: INSULIN LISPRO 100 UNITS/ML SQ PRN ×2 (06:43→20:15)
[2018-04-14] MEDS: MetFORMIN HCL 500 MG TABLET PO SCH ×2 (06:57→17:17)
[2018-04-14 08:00] VITALS: BP 111/72
[2018-04-14] MEDS: MULTIVITAMINS WITH MINERALS, THERAPEUTIC TABLET PO SCH (10:24)
[2018-04-14] MEDS: INSULIN GLARGINE,HUM.REC.ANLOG 100 UNITS/ML SQ SCH (10:25)
[2018-04-14 12:14] LABS: GLUCOMETER DEV NAME(LOC) 3E.I; GLUCOSE,POINT OF CARE 119 MG/DL (70-110)
[2018-04-14 17:29] LABS: GLUCOMETER DEV NAME(LOC) 3E.I; GLUCOSE,POINT OF CARE 114 MG/DL (70-110)
[2018-04-14 19:36] VITALS: BP 125/69
[2018-04-14] MEDS: OLANZapine 10 MG TABLET PO SCH (20:09)
[2018-04-14 20:19] LABS: GLUCOMETER DEV NAME(LOC) 3E.I; GLUCOSE,POINT OF CARE 213 MG/DL (70-110)
[2018-04-15 06:05] LABS: GLUCOMETER DEV NAME(LOC) 3E.I; GLUCOSE,POINT OF CARE 189 MG/DL (70-110)
[2018-04-15] MEDS: MetFORMIN HCL 500 MG TABLET PO SCH (06:45)
[2018-04-15] MEDS: INSULIN LISPRO 100 UNITS/ML SQ PRN ×2 (06:46→11:56)
[2018-04-15 08:22] VITALS: BP 134/73
[2018-04-15] MEDS: MULTIVITAMINS WITH MINERALS, THERAPEUTIC TABLET PO SCH (09:25)
[2018-04-15] MEDS: INSULIN GLARGINE,HUM.REC.ANLOG 100 UNITS/ML SQ SCH (09:30)
[2018-04-15] MEDS ORDERED: INSLAN SQ (10:37)
[2018-04-15] MEDS ORDERED: MULT-1239 PO (10:37)
[2018-04-15] MEDS ORDERED: METF-960 PO (10:38)
[2018-04-15 11:40] LABS: GLUCOMETER DEV NAME(LOC) 3E.I; GLUCOSE,POINT OF CARE 156 MG/DL (70-110)
== END 2018-04-15 12:00 | disposition home or self-care (01) | DRG 750 ==
LOC: EMS 00:08 → 3EI 02:00
PROVIDERS: ADMIT Psychiatry & Neurology Psychiatry; ATTEND Psychiatry & Neurology Psychiatry
DX: F25.9 Schizoaffective disorder, unspecified (principal); R45.851 Suicidal ideations; E11.65 Type 2 diabetes mellitus with hyperglycemia; B37.3 Candidiasis of vulva and vagina; F15.90 Other stimulant use, unspecified, uncomplicated; F12.90 Cannabis use, unspecified, uncomplicated; F17.210 Nicotine dependence, cigarettes, uncomplicated; F32.9 Major depressive disorder, single episode, unspecified; I10 Essential (primary) hypertension; Z59.0 Homelessness; Z88.5 Allergy status to narcotic agent; Z79.899 Other long term (current) drug therapy; Z72.89 Other problems related to lifestyle
CPT/HCPCS: 80074; 82105; 83036; 84439; 84443; 86592; 96361; 96374; G0480; J1815; J7030

== ENCOUNTER 2019-03-21 22:19 | Inpatient (IN) | payer MEDICAID ==
[~2019-03-21] VITALS: Ht 175.3 cm; Wt 104.8 kg
[~2019-03-21 22:19] MED LIST changes: -BENA20 PO; -FLUO-191 PO; -METF-960 PO; +OLAN10TA20 PO; -OLAN10TA3 PO; +SERT100T12 PO
[2019-03-21] MEDS ORDERED: METF-960 PO (23:02)
[2019-03-21 23:16] LABS: GLUCOSE,POINT OF CARE 158 MG/DL (70-110)
[2019-03-21 23:19] LABS: BASOPHILS % (AUTO) 0.2 % (0.0-2.0); EOSINOPHILS % (AUTO) 2.2 % (1.0-6.0); HEMATOCRIT 39.2 % (36-46); LYMPHOCYTES # (AUTO) 2.6 K/uL (1.0-4.8); LYMPHOCYTES % (AUTO) 38.8 % (22.0-44.0); MEAN CORPUSCULAR HGB CONC 33.2 G/dL (31.0-37.0); MEAN CORPUSCULAR VOLUME 84 fL (80-100); MONOCYTES # (AUTO) 0.6 K/uL (0.1-1.0); MONOCYTES % (AUTO) 9.1 % (2.0-9.0); NEUTROPHILS # (AUTO) 3.3 K/uL (1.8-7.7); NEUTROPHILS % (AUTO) 49.7 % (40.0-70.0); PLATELET COUNT (AUTO) 176 K/uL (150-450); RED BLOOD CELL COUNT(AUTO) 4.65 MIL/uL (4.00-5.20); RED CELL DISTRIBUTION WIDTH 15.4 % (11.5-14.5)
[2019-03-21 23:38] LABS: ANION GAP 7 mmol/L (8-16); CALCIUM, TOTAL 9.1 mg/dL (8.8-10.5); CARBON DIOXIDE 31 mmol/L (22-29); CHLORIDE 101 mmol/L (98-107); GLOMERULAR FILTR. RATE CALC > 60 mL/min (>60); GLUCOSE,RANDOM 176 mg/dL (70-110); POTASSIUM 4.2 mmol/L (3.5-5.1); SODIUM SERUM 139 mmol/L (136-145); UREA NITROGEN, BLOOD 22 mg/dL (7-18)
[2019-03-21 23:44] LABS: ALANINE AMINOTRANSFERASE 23 U/L (12-78); ALBUMIN 3.6 g/dL (3.4-5.0); ALKALINE PHOSPHATASE 138 U/L (46-116); ASPARTATE AMINOTRANSFERASE 15 U/L (15-37); BILIRUBIN,TOTAL 0.2 mg/dL (0.1-1.0); TOTAL PROTEIN, SERUM 7.6 g/dL (6.4-8.2)
[2019-03-22] MEDS ORDERED: OLANZapine 5 MG RAPDIS TABLET PO PRN
[2019-03-22] MEDS ORDERED: LORazepam 2 MG TABLET PO PRN
[2019-03-22] MEDS ORDERED: ACETAMINOPHEN 500 MG TABLET PO ONE
[2019-03-22] MEDS ORDERED: ZOLPIDEM TARTRATE 10 MG TABLET PO PRN
[2019-03-22 02:14] LABS: AMPHET/METH SCREEN,URINE NEGATIVE (NEGATIVE); BARBITURATE SCREEN, URINE NEGATIVE (NEGATIVE); BENZODIAZEPINES SCREEN,URINE NEGATIVE (NEGATIVE); CANNABINOID SCREEN,URINE NEGATIVE (NEGATIVE); COCAINE SCREEN,URINE NEGATIVE (NEGATIVE); METHADONE SCREEN, URINE NEGATIVE (NEGATIVE); OPIATE SCREEN,URINE NEGATIVE (NEGATIVE)
[2019-03-22 02:15] LABS: PHENCYCLIDINE SCREEN,URINE NEGATIVE (NEGATIVE)
[2019-03-22] MEDS ORDERED: ACETAMINOPHEN 325 MG TABLET PO PRN ×2 (02:15→12:15)
[2019-03-22] MEDS ORDERED: 0.9% SODIUM CHLORIDE 10 ML SYRINGE IVP PRN (02:15)
[2019-03-22] MEDS ORDERED: ONDANSETRON HCL 4 MG/2 ML VIAL IVP PRN (02:15)
[2019-03-22 04:53] LABS: CHOL/HDL RATIO 2.5 (3.9-5.7); CHOLESTEROL 201 mg/dL (131-200); HDL CHOLESTEROL 82 mg/dL (40-60); LDL CHOL (CALC.) 103 mg/dL (0-130); TRIGLYCERIDES 80 mg/dL (15-150)
[2019-03-22 04:56] LABS: APPEARANCE,URINE CLOUDY (CLEAR); BILIRUBIN,URINE NEGATIVE (NEGATIVE); GLUCOSE, URINE (UA) 250 mg/dL (NEGATIVE); KETONES,URINE NEGATIVE (NEGATIVE); LEUKOCYTE ESTERASE ,URINE TRACE (NEGATIVE); NITRATE,URINE NEGATIVE (NEGATIVE); OCCULT BLOOD,URINE NEGATIVE (NEGATIVE); PH,URINE 6.5 (5.0-8.0); PROTEIN,URINE NEGATIVE (NEGATIVE); UROBILINOGEN,URINE 0.2 mg/dL (<=1.0)
[2019-03-22 05:06] LABS: BACTERIA,URINE Few /HPF (None Seen); RBC,URINE None Seen /HPF (0-2); SQUAMOUS EPITHELIAL CELL,UR Few /LPF (None Seen)
[2019-03-22] MEDS ORDERED: INFLUENZA VIRUS VACCINE QVS 2019-20 (3YR+)/PF 60 MCG/0.5 ML SYRINGE IM ONE (11:45)
[2019-03-22] MEDS ORDERED: PNEUMOCOCCAL VACCINE POLYVALENT 0.5 ML VIAL [PPSV23] IM ONE (11:45)
[2019-03-22 12:03] VITALS: BP 120/76
[2019-03-22] MEDS ORDERED: GuaiFENesin/D-METHORPHAN [SUGAR-FREE] 200-20MG/10 ML SYRUP UDCUP PO PRN (12:15)
[2019-03-22] MEDS ORDERED: NICOTINE 14 MG/24 HOUR PATCH TD PRN (12:15)
[2019-03-22] MEDS ORDERED: MAGNESIUM HYDROXIDE SUSPENSION 30 ML UDCUP PO PRN (12:15)
[2019-03-22] MEDS ORDERED: PETROLATUM,WHITE 28 GM JELLY TP PRN (12:15)
[2019-03-22] MEDS ORDERED: ALBUTEROL SULFATE HFA 90 MCG/PUFF 8 GM INHALER IH PRN (12:15)
[2019-03-22] MEDS ORDERED: CloNIDine HCL 0.1 MG TABLET PO PRN (12:15)
[2019-03-22] MEDS ORDERED: MAG HYDROX/AL HYDROX/SIMETH ES 30 ML SUSPENSION UDCUP PO PRN (12:15)
[2019-03-22] MEDS ORDERED: DOCUSATE SODIUM 100 MG CAPSULE PO PRN (12:15)
[2019-03-22] MEDS ORDERED: LOPERAMIDE HCL 2 MG CAPSULE PO PRN (12:15)
[2019-03-22] MEDS ORDERED: ONDANSETRON HCL 4 MG TABLET PO PRN (12:15)
[2019-03-22] MEDS: MetFORMIN HCL 500 MG TABLET PO SCH (17:29)
[2019-03-22] MEDS: DIVALPROEX SODIUM 500 MG DR TABLET PO SCH (17:29)
[2019-03-22 21:00] LABS: GLUCOMETER DEV NAME(LOC) 3EX.; GLUCOSE,POINT OF CARE 173 MG/DL (70-110)
[2019-03-22 23:45] VITALS: BP 111/66
[2019-03-22] MEDS: TraMADol HCL 50 MG TABLET PO PRN (23:47)
[2019-03-23 06:04] LABS: GLUCOMETER DEV NAME(LOC) 3EX.; GLUCOSE,POINT OF CARE 142 MG/DL (70-110)
[2019-03-23 06:06] LABS: BASOPHILS % (AUTO) 0.3 % (0.0-2.0); HEMATOCRIT 40.5 % (36-46); HEMOGLOBIN 13.3 g/dL (12.0-16.0); LYMPHOCYTES % (AUTO) 51.5 % (22.0-44.0); MEAN CORPUSCULAR HEMOGLOBIN 27.6 pg (26.0-34.0); MEAN CORPUSCULAR HGB CONC 32.8 G/dL (31.0-37.0); MEAN CORPUSCULAR VOLUME 84 fL (80-100); MONOCYTES # (AUTO) 0.5 K/uL (0.1-1.0); MONOCYTES % (AUTO) 7.9 % (2.0-9.0); NEUTROPHILS # (AUTO) 2.1 K/uL (1.8-7.7); NEUTROPHILS % (AUTO) 37.3 % (40.0-70.0); PLATELET COUNT (AUTO) 176 K/uL (150-450); RED BLOOD CELL COUNT(AUTO) 4.81 MIL/uL (4.00-5.20); RED CELL DISTRIBUTION WIDTH 15.2 % (11.5-14.5)
[2019-03-23 06:23] LABS: HEMOGLOBIN A1C 6.7 % (4.5-6.2)
[2019-03-23 06:36] LABS: ALANINE AMINOTRANSFERASE 21 U/L (12-78); ALBUMIN 3.2 g/dL (3.4-5.0); ALKALINE PHOSPHATASE 89 U/L (46-116); ANION GAP 8 mmol/L (8-16); ASPARTATE AMINOTRANSFERASE 15 U/L (15-37); BILIRUBIN,TOTAL 0.4 mg/dL (0.1-1.0); CALCIUM, TOTAL 9.1 mg/dL (8.8-10.5); CARBON DIOXIDE 30 mmol/L (22-29); CHLORIDE 102 mmol/L (98-107); CHOL/HDL RATIO 2.4 (3.9-5.7); CHOLESTEROL 179 mg/dL (131-200); GLOMERULAR FILTR. RATE CALC > 60 mL/min (>60); GLUCOSE,RANDOM 139 mg/dL (70-110); HDL CHOLESTEROL 76 mg/dL (40-60); LDL CHOL (CALC.) 84 mg/dL (0-130); POTASSIUM 4.1 mmol/L (3.5-5.1); SODIUM SERUM 140 mmol/L (136-145); THYROID STIMULATING HORMONE 1.99 uIU/mL (0.36-3.74); TOTAL PROTEIN, SERUM 7.1 g/dL (6.4-8.2); TRIGLYCERIDES 93 mg/dL (15-150); UREA NITROGEN, BLOOD 14 mg/dL (7-18)
[2019-03-23] MEDS: MetFORMIN HCL 500 MG TABLET PO SCH ×2 (06:46→16:39)
[2019-03-23 08:30] VITALS: BP 122/73
[2019-03-23] MEDS: ARIPiprazole 10 MG TABLET PO SCH (09:00)
[2019-03-23] MEDS: DIVALPROEX SODIUM 500 MG DR TABLET PO SCH ×2 (09:00→16:39)
[2019-03-23 13:35] VITALS: BP 100/64
[2019-03-23] MEDS: TraMADol HCL 50 MG TABLET PO PRN ×2 (13:39→23:10)
[2019-03-23 17:17] LABS: GLUCOMETER DEV NAME(LOC) 3EX.; GLUCOSE,POINT OF CARE 113 MG/DL (70-110)
[2019-03-23 19:02] VITALS: BP 109/60
[2019-03-23 23:07] VITALS: BP 151/76
[2019-03-24 00:05] VITALS: BP 109/68
[2019-03-24 05:41] LABS: GLUCOMETER DEV NAME(LOC) 3EX.; GLUCOSE,POINT OF CARE 154 MG/DL (70-110)
[2019-03-24] MEDS: MetFORMIN HCL 500 MG TABLET PO SCH ×2 (06:57→16:47)
[2019-03-24] MEDS: DIVALPROEX SODIUM 500 MG DR TABLET PO SCH ×2 (09:10→16:47)
[2019-03-24] MEDS: ARIPiprazole 10 MG TABLET PO SCH (09:10)
[2019-03-24 10:55] VITALS: BP 119/65
[2019-03-24] MEDS: TraMADol HCL 50 MG TABLET PO PRN ×2 (10:57→19:24)
[2019-03-24 17:20] LABS: GLUCOMETER DEV NAME(LOC) 3EX.; GLUCOSE,POINT OF CARE 108 MG/DL (70-110)
[2019-03-24 18:26] VITALS: BP 124/69
[2019-03-24 19:15] VITALS: BP 112/66
[2019-03-25 02:33] VITALS: BP 115/69
[2019-03-25 05:39] LABS: GLUCOMETER DEV NAME(LOC) 3EX.; GLUCOSE,POINT OF CARE 151 MG/DL (70-110)
[2019-03-25] MEDS: MetFORMIN HCL 500 MG TABLET PO SCH ×2 (06:57→16:20)
[2019-03-25 08:45] VITALS: BP 102/57
[2019-03-25] MEDS: ARIPiprazole 10 MG TABLET PO SCH (10:28)
[2019-03-25] MEDS: DIVALPROEX SODIUM 500 MG DR TABLET PO SCH ×2 (10:28→16:20)
[2019-03-25] MEDS ORDERED: DIVA-78 PO (11:32)
[2019-03-25] MEDS ORDERED: ARIP10TA8 PO (11:32)
[2019-03-25 16:25] LABS: GLUCOMETER DEV NAME(LOC) 3EX.; GLUCOSE,POINT OF CARE 107 MG/DL (70-110)
[2019-03-25 17:22] VITALS: BP 129/71
[2019-03-25 21:16] VITALS: BP 150/89
[2019-03-25] MEDS: TraMADol HCL 50 MG TABLET PO PRN (21:19)
[2019-03-26 05:33] LABS: GLUCOMETER DEV NAME(LOC) 3EX.; GLUCOSE,POINT OF CARE 155 MG/DL (70-110)
[2019-03-26] MEDS: MetFORMIN HCL 500 MG TABLET PO SCH ×2 (06:40→16:50)
[2019-03-26 08:00] VITALS: BP 108/65
[2019-03-26] MEDS: DIVALPROEX SODIUM 500 MG DR TABLET PO SCH ×2 (09:18→16:50)
[2019-03-26] MEDS: ARIPiprazole 10 MG TABLET PO SCH (09:18)
[2019-03-26 17:35] LABS: GLUCOMETER DEV NAME(LOC) 3EX.; GLUCOSE,POINT OF CARE 139 MG/DL (70-110)
[2019-03-26 17:57] VITALS: BP 117/72
[2019-03-27 06:15] LABS: GLUCOMETER DEV NAME(LOC) 3EX.; GLUCOSE,POINT OF CARE 137 MG/DL (70-110)
[2019-03-27] MEDS: MetFORMIN HCL 500 MG TABLET PO SCH ×2 (06:42→16:34)
[2019-03-27 09:27] VITALS: BP 120/68
[2019-03-27] MEDS: ARIPiprazole 10 MG TABLET PO SCH (10:15)
[2019-03-27] MEDS: DIVALPROEX SODIUM 500 MG DR TABLET PO SCH ×2 (10:15→16:35)
[2019-03-27 16:30] VITALS: BP 107/78
[2019-03-27] MEDS: TraMADol HCL 50 MG TABLET PO PRN (16:34)
[2019-03-27 17:12] LABS: GLUCOMETER DEV NAME(LOC) 3EX.; GLUCOSE,POINT OF CARE 143 MG/DL (70-110)
[2019-03-28 05:40] LABS: GLUCOMETER DEV NAME(LOC) 3EX.; GLUCOSE,POINT OF CARE 145 MG/DL (70-110)
[2019-03-28] MEDS: MetFORMIN HCL 500 MG TABLET PO SCH ×2 (06:43→17:20)
[2019-03-28 08:30] VITALS: BP 103/64
[2019-03-28] MEDS: DIVALPROEX SODIUM 500 MG DR TABLET PO SCH ×2 (10:00→17:20)
[2019-03-28] MEDS: ARIPiprazole 10 MG TABLET PO SCH (10:00)
[2019-03-28 17:36] LABS: GLUCOMETER DEV NAME(LOC) 3EX.; GLUCOSE,POINT OF CARE 190 MG/DL (70-110)
[2019-03-28 17:51] VITALS: BP 127/70
[2019-03-28 21:03] VITALS: BP 134/72
[2019-03-28] MEDS: TraMADol HCL 50 MG TABLET PO PRN (21:03)
[2019-03-29 05:55] LABS: GLUCOMETER DEV NAME(LOC) 3EX.; GLUCOSE,POINT OF CARE 156 MG/DL (70-110)
[2019-03-29] MEDS: MetFORMIN HCL 500 MG TABLET PO SCH ×2 (06:39→16:56)
[2019-03-29 08:32] VITALS: BP 114/70
[2019-03-29] MEDS: DIVALPROEX SODIUM 500 MG DR TABLET PO SCH ×2 (10:20→16:55)
[2019-03-29] MEDS: ARIPiprazole 10 MG TABLET PO SCH (10:20)
[2019-03-29 17:05] LABS: GLUCOMETER DEV NAME(LOC) 3EX.; GLUCOSE,POINT OF CARE 160 MG/DL (70-110)
[2019-03-29] MEDS: TraMADol HCL 50 MG TABLET PO PRN (18:35)
[2019-03-29 18:36] VITALS: BP 111/71
[2019-03-30 05:30] LABS: GLUCOMETER DEV NAME(LOC) 3EX.; GLUCOSE,POINT OF CARE 165 MG/DL (70-110)
[2019-03-30] MEDS: MetFORMIN HCL 500 MG TABLET PO SCH ×2 (07:01→17:00)
[2019-03-30 08:00] VITALS: BP 108/61
[2019-03-30] MEDS: DIVALPROEX SODIUM 500 MG DR TABLET PO SCH ×2 (09:25→17:00)
[2019-03-30] MEDS: ARIPiprazole 10 MG TABLET PO SCH (09:25)
[2019-03-30 16:51] LABS: GLUCOMETER DEV NAME(LOC) 3EX.; GLUCOSE,POINT OF CARE 144 MG/DL (70-110)
[2019-03-30] MEDS: TraMADol HCL 50 MG TABLET PO PRN (18:38)
[2019-03-30 18:42] VITALS: BP 118/68
[2019-03-31 05:46] LABS: GLUCOMETER DEV NAME(LOC) 3EX.; GLUCOSE,POINT OF CARE 119 MG/DL (70-110)
[2019-03-31] MEDS: MetFORMIN HCL 500 MG TABLET PO SCH ×2 (07:07→16:34)
[2019-03-31 09:00] VITALS: BP 113/62
[2019-03-31] MEDS: ARIPiprazole 10 MG TABLET PO SCH (09:58)
[2019-03-31] MEDS: DIVALPROEX SODIUM 500 MG DR TABLET PO SCH ×2 (09:58→16:34)
[2019-03-31 17:46] LABS: GLUCOMETER DEV NAME(LOC) 3EX.; GLUCOSE,POINT OF CARE 146 MG/DL (70-110)
[2019-03-31 17:58] VITALS: BP 118/90
[2019-03-31] MEDS: TraMADol HCL 50 MG TABLET PO PRN (19:25)
[2019-04-01 05:28] LABS: GLUCOMETER DEV NAME(LOC) 3EX.; GLUCOSE,POINT OF CARE 147 MG/DL (70-110)
[2019-04-01] MEDS: MetFORMIN HCL 500 MG TABLET PO SCH ×2 (06:56→16:20)
[2019-04-01] MEDS: DIVALPROEX SODIUM 500 MG DR TABLET PO SCH ×2 (08:21→16:20)
[2019-04-01] MEDS: ARIPiprazole 10 MG TABLET PO SCH (08:22)
[2019-04-01 08:30] VITALS: BP 127/64
[2019-04-01 18:00] LABS: GLUCOMETER DEV NAME(LOC) 3EX.; GLUCOSE,POINT OF CARE 157 MG/DL (70-110)
[2019-04-01 21:44] VITALS: BP 118/67
[2019-04-01] MEDS: TraMADol HCL 50 MG TABLET PO PRN (21:44)
[2019-04-02 05:26] VITALS: BP 114/69
[2019-04-02 05:34] LABS: GLUCOMETER DEV NAME(LOC) 3EX.; GLUCOSE,POINT OF CARE 148 MG/DL (70-110)
[2019-04-02] MEDS: MetFORMIN HCL 500 MG TABLET PO SCH ×2 (06:44→16:17)
[2019-04-02] MEDS: DIVALPROEX SODIUM 500 MG DR TABLET PO SCH ×2 (08:28→16:17)
[2019-04-02] MEDS: ARIPiprazole 10 MG TABLET PO SCH (08:28)
[2019-04-02 16:52] VITALS: BP 100/74
[2019-04-02 17:11] LABS: GLUCOMETER DEV NAME(LOC) 3EX.; GLUCOSE,POINT OF CARE 216 MG/DL (70-110)
[2019-04-02 19:50] VITALS: BP 118/82
[2019-04-02] MEDS: TraMADol HCL 50 MG TABLET PO PRN (19:56)
[2019-04-03 05:35] LABS: GLUCOMETER DEV NAME(LOC) 3EX.; GLUCOSE,POINT OF CARE 178 MG/DL (70-110)
[2019-04-03] MEDS: MetFORMIN HCL 500 MG TABLET PO SCH ×2 (06:55→16:57)
[2019-04-03 08:13] VITALS: BP 124/67
[2019-04-03] MEDS: DIVALPROEX SODIUM 500 MG DR TABLET PO SCH ×2 (09:00→16:57)
[2019-04-03] MEDS: ARIPiprazole 10 MG TABLET PO SCH (09:55)
[2019-04-03] MEDS: TraMADol HCL 50 MG TABLET PO PRN (13:32)
[2019-04-03 17:01] LABS: GLUCOMETER DEV NAME(LOC) 3EX.; GLUCOSE,POINT OF CARE 208 MG/DL (70-110)
[2019-04-03 18:14] VITALS: BP 147/86
[2019-04-04 02:45] VITALS: BP 137/93
[2019-04-04] MEDS: TraMADol HCL 50 MG TABLET PO PRN ×3 (02:53→22:22)
[2019-04-04 05:43] LABS: GLUCOMETER DEV NAME(LOC) 3EX.; GLUCOSE,POINT OF CARE 313 MG/DL (70-110)
[2019-04-04] MEDS: MetFORMIN HCL 500 MG TABLET PO SCH ×2 (06:51→16:30)
[2019-04-04 09:05] VITALS: BP 108/56
[2019-04-04] MEDS: ARIPiprazole 10 MG TABLET PO SCH (10:11)
[2019-04-04] MEDS: DIVALPROEX SODIUM 500 MG DR TABLET PO SCH ×2 (10:11→16:30)
[2019-04-04 19:28] VITALS: BP 117/81
[2019-04-04 20:56] LABS: GLUCOMETER DEV NAME(LOC) 3EX.; GLUCOSE,POINT OF CARE 179 MG/DL (70-110)
[2019-04-04 22:00] VITALS: BP 122/80
[2019-04-05 02:46] VITALS: BP 97/72
[2019-04-05 06:13] LABS: GLUCOMETER DEV NAME(LOC) 3EX.; GLUCOSE,POINT OF CARE 147 MG/DL (70-110)
[2019-04-05] MEDS: MetFORMIN HCL 500 MG TABLET PO SCH ×2 (06:49→16:29)
[2019-04-05 08:58] VITALS: BP 110/86
[2019-04-05] MEDS: DIVALPROEX SODIUM 500 MG DR TABLET PO SCH ×2 (09:33→16:29)
[2019-04-05] MEDS: ARIPiprazole 10 MG TABLET PO SCH (09:33)
[2019-04-05] MEDS: TraMADol HCL 50 MG TABLET PO PRN (12:40)
[2019-04-05 16:29] VITALS: BP 141/71
[2019-04-05 17:05] LABS: GLUCOMETER DEV NAME(LOC) 3EX.; GLUCOSE,POINT OF CARE 177 MG/DL (70-110)
[2019-04-06 03:14] VITALS: BP 138/84
[2019-04-06] MEDS: TraMADol HCL 50 MG TABLET PO PRN (03:19)
[2019-04-06 05:54] LABS: GLUCOMETER DEV NAME(LOC) 3EX.; GLUCOSE,POINT OF CARE 161 MG/DL (70-110)
[2019-04-06] MEDS: MetFORMIN HCL 500 MG TABLET PO SCH (06:46)
[2019-04-06] MEDS: DIVALPROEX SODIUM 500 MG DR TABLET PO SCH (10:00)
[2019-04-06] MEDS: ARIPiprazole 10 MG TABLET PO SCH (10:00)
[2019-04-06] MEDS ORDERED: METF-960 PO (11:59)
== END 2019-04-06 14:08 | disposition home or self-care (01) | DRG 885 ==
LOC: EMS 22:20 → 3EI 03-22 10:50
PROVIDERS: ADMIT Psychiatry & Neurology Psychiatry; ATTEND Psychiatry & Neurology Psychiatry
DX: F25.1 Schizoaffective disorder, depressive type (principal); R45.851 Suicidal ideations; F17.200 Nicotine dependence, unspecified, uncomplicated; E11.9 Type 2 diabetes mellitus without complications; G89.29 Other chronic pain; I10 Essential (primary) hypertension; J44.9 Chronic obstructive pulmonary disease, unspecified; Z91.14 Patient's other noncompliance with medication regimen; Z88.8 Allergy status to other drugs, medicaments and biological substances
CPT/HCPCS: 83036; 84443; 93971; 97161; 97165; 97535; G0480; Q0162

== ENCOUNTER 2019-04-06 20:16 | Inpatient (IN) | payer MEDICAID, OTHER ==
[~2019-04-06] VITALS: Ht 172.7 cm; Wt 104.8 kg
[~2019-04-06 20:16] MED LIST changes: +ARIP10TA8 PO; +DIVA-78 PO; +METF-960 PO; -OLAN10TA20 PO; -SERT100T12 PO
[2019-04-06 20:51] LABS: BASOPHILS % (AUTO) 0.3 % (0.0-2.0); EOSINOPHILS % (AUTO) 0.9 % (1.0-6.0); HEMATOCRIT 41.1 % (36-46); LYMPHOCYTES # (AUTO) 2.2 K/uL (1.0-4.8); LYMPHOCYTES % (AUTO) 28.1 % (22.0-44.0); MEAN CORPUSCULAR HEMOGLOBIN 28.4 pg (26.0-34.0); MEAN CORPUSCULAR VOLUME 84 fL (80-100); MONOCYTES # (AUTO) 0.7 K/uL (0.1-1.0); MONOCYTES % (AUTO) 8.8 % (2.0-9.0); NEUTROPHILS # (AUTO) 4.8 K/uL (1.8-7.7); NEUTROPHILS % (AUTO) 61.9 % (40.0-70.0); PLATELET COUNT (AUTO) 164 K/uL (150-450); RED BLOOD CELL COUNT(AUTO) 4.93 MIL/uL (4.00-5.20); RED CELL DISTRIBUTION WIDTH 15.1 % (11.5-14.5)
[2019-04-06 21:00] LABS: ANION GAP 8 mmol/L (8-16); CALCIUM, TOTAL 9.7 mg/dL (8.8-10.5); CARBON DIOXIDE 31 mmol/L (22-29); CHLORIDE 100 mmol/L (98-107); CREATININE 0.86 mg/dL (0.60-1.30); GLOMERULAR FILTR. RATE CALC > 60 mL/min (>60); GLUCOSE,RANDOM 214 mg/dL (70-110); POTASSIUM 4.6 mmol/L (3.5-5.1); SODIUM SERUM 139 mmol/L (136-145); UREA NITROGEN, BLOOD 21 mg/dL (7-18)
[2019-04-06 21:06] LABS: ALANINE AMINOTRANSFERASE 17 U/L (12-78); ALBUMIN 3.7 g/dL (3.4-5.0); ALKALINE PHOSPHATASE 102 U/L (46-116); ASPARTATE AMINOTRANSFERASE 14 U/L (15-37); BILIRUBIN,TOTAL 0.2 mg/dL (0.1-1.0); TOTAL PROTEIN, SERUM 7.6 g/dL (6.4-8.2)
[2019-04-06] MEDS ORDERED: HALOPERIDOL 5 MG TABLET PO PRN (23:00)
[2019-04-06] MEDS ORDERED: ACETAMINOPHEN 500 MG TABLET PO ONE (23:30)
[2019-04-07 03:21] VITALS: BP 138/90
[2019-04-07] MEDS ORDERED: PNEUMOCOCCAL VACCINE POLYVALENT 0.5 ML VIAL [PPSV23] IM ONE (05:30)
[2019-04-07] MEDS ORDERED: INFLUENZA VIRUS VACCINE QVS 2019-20 (3YR+)/PF 60 MCG/0.5 ML SYRINGE IM ONE (05:30)
[2019-04-07 07:52] LABS: CHOL/HDL RATIO 2.4 (3.9-5.7)
[2019-04-07] MEDS: NYSTATIN 15 GM POWDER BOTTLE TP SCH ×2 (09:00→17:07)
[2019-04-07] MEDS: DIVALPROEX SODIUM 500 MG DR TABLET PO SCH ×2 (11:28→16:38)
[2019-04-07] MEDS: ARIPiprazole 10 MG TABLET PO SCH (11:29)
[2019-04-07] MEDS ORDERED: DOCUSATE SODIUM 100 MG CAPSULE PO PRN (12:00)
[2019-04-07] MEDS ORDERED: ACETAMINOPHEN 325 MG TABLET PO PRN (12:00)
[2019-04-07] MEDS ORDERED: ALBUTEROL SULFATE HFA 90 MCG/PUFF 8 GM INHALER IH PRN (12:00)
[2019-04-07] MEDS ORDERED: MAG HYDROX/AL HYDROX/SIMETH ES 30 ML SUSPENSION UDCUP PO PRN (12:00)
[2019-04-07] MEDS ORDERED: ONDANSETRON HCL 4 MG TABLET PO PRN (12:00)
[2019-04-07] MEDS ORDERED: LOPERAMIDE HCL 2 MG CAPSULE PO PRN (12:00)
[2019-04-07] MEDS ORDERED: MAGNESIUM HYDROXIDE SUSPENSION 30 ML UDCUP PO PRN (12:00)
[2019-04-07] MEDS ORDERED: CloNIDine HCL 0.1 MG TABLET PO PRN (12:00)
[2019-04-07] MEDS ORDERED: NICOTINE 14 MG/24 HOUR PATCH TD PRN (12:00)
[2019-04-07] MEDS ORDERED: GuaiFENesin/D-METHORPHAN [SUGAR-FREE] 200-20MG/10 ML SYRUP UDCUP PO PRN (12:00)
[2019-04-07] MEDS ORDERED: PETROLATUM,WHITE 28 GM JELLY TP PRN (12:00)
[2019-04-07 16:11] VITALS: BP 143/76
[2019-04-07] MEDS: MetFORMIN HCL 500 MG TABLET PO SCH (16:39)
[2019-04-08 03:29] VITALS: BP 114/72
[2019-04-08] MEDS: MetFORMIN HCL 500 MG TABLET PO SCH ×2 (06:34→16:34)
[2019-04-08] MEDS: ARIPiprazole 10 MG TABLET PO SCH (08:21)
[2019-04-08] MEDS: DIVALPROEX SODIUM 500 MG DR TABLET PO SCH ×2 (08:21→16:34)
[2019-04-08] MEDS: NYSTATIN 15 GM POWDER BOTTLE TP SCH ×2 (08:21→16:34)
[2019-04-08 11:14] LABS: GLUCOMETER DEV NAME(LOC) BV2S.; GLUCOSE,POINT OF CARE 181 MG/DL (70-110)
[2019-04-08] MEDS: MULTIVITAMINS WITH MINERALS, THERAPEUTIC TABLET PO SCH (12:15)
[2019-04-08] MEDS ORDERED: LOPERAMIDE HCL 2 MG CAPSULE PO PRN (16:45)
[2019-04-08 17:16] LABS: GLUCOMETER DEV NAME(LOC) BV2S.; GLUCOSE,POINT OF CARE 216 MG/DL (70-110)
[2019-04-08 20:14] LABS: GLUCOMETER DEV NAME(LOC) BV2S.; GLUCOSE,POINT OF CARE 212 MG/DL (70-110)
[2019-04-09 00:44] VITALS: BP 130/63
[2019-04-09 04:37] VITALS: BP 128/64
[2019-04-09] MEDS: LORazepam 1 MG TABLET PO PRN (04:39)
[2019-04-09] MEDS: MetFORMIN HCL 500 MG TABLET PO SCH ×2 (07:06→16:33)
[2019-04-09 08:11] VITALS: BP 103/61
[2019-04-09] MEDS: MULTIVITAMINS WITH MINERALS, THERAPEUTIC TABLET PO SCH (08:17)
[2019-04-09] MEDS: ARIPiprazole 10 MG TABLET PO SCH (08:17)
[2019-04-09] MEDS: DIVALPROEX SODIUM 500 MG DR TABLET PO SCH ×2 (08:17→16:33)
[2019-04-09] MEDS: NYSTATIN 15 GM POWDER BOTTLE TP SCH ×2 (09:15→16:38)
[2019-04-09 11:06] LABS: GLUCOMETER DEV NAME(LOC) BV2S.; GLUCOSE,POINT OF CARE 173 MG/DL (70-110)
[2019-04-09 16:35] LABS: GLUCOMETER DEV NAME(LOC) BV2S.; GLUCOSE,POINT OF CARE 194 MG/DL (70-110)
[2019-04-09 17:10] VITALS: BP 107/64
[2019-04-09 21:54] LABS: GLUCOMETER DEV NAME(LOC) BV2S.; GLUCOSE,POINT OF CARE 189 MG/DL (70-110)
[2019-04-10 00:49] VITALS: BP 117/64
[2019-04-10 06:34] LABS: GLUCOMETER DEV NAME(LOC) BV2S.; GLUCOSE,POINT OF CARE 187 MG/DL (70-110)
[2019-04-10] MEDS: MetFORMIN HCL 500 MG TABLET PO SCH ×2 (07:01→16:18)
[2019-04-10] MEDS: MULTIVITAMINS WITH MINERALS, THERAPEUTIC TABLET PO SCH (08:18)
[2019-04-10] MEDS: ARIPiprazole 10 MG TABLET PO SCH (08:18)
[2019-04-10] MEDS: DIVALPROEX SODIUM 500 MG DR TABLET PO SCH ×2 (08:18→16:18)
[2019-04-10] MEDS: NYSTATIN 15 GM POWDER BOTTLE TP SCH ×2 (08:23→16:19)
[2019-04-10 11:06] LABS: GLUCOMETER DEV NAME(LOC) BV2S.; GLUCOSE,POINT OF CARE 180 MG/DL (70-110)
[2019-04-10 16:21] VITALS: BP 127/78
[2019-04-10 16:44] LABS: GLUCOMETER DEV NAME(LOC) BV3S.; GLUCOSE,POINT OF CARE 247 MG/DL (70-110)
[2019-04-10] MEDS: INSULIN GLARGINE,HUM.REC.ANLOG 100 UNITS/ML SQ SCH (20:15)
[2019-04-10] MEDS: ZOLPIDEM TARTRATE 10 MG TABLET PO PRN (20:16)
[2019-04-10 20:20] LABS: GLUCOMETER DEV NAME(LOC) BV3S.; GLUCOSE,POINT OF CARE 183 MG/DL (70-110)
[2019-04-11 00:35] VITALS: BP 127/67
[2019-04-11] MEDS: MetFORMIN HCL 500 MG TABLET PO SCH ×2 (06:18→16:56)
[2019-04-11 06:23] LABS: GLUCOMETER DEV NAME(LOC) BV3S.; GLUCOSE,POINT OF CARE 144 MG/DL (70-110)
[2019-04-11] MEDS: MULTIVITAMINS WITH MINERALS, THERAPEUTIC TABLET PO SCH (08:18)
[2019-04-11] MEDS: DIVALPROEX SODIUM 500 MG DR TABLET PO SCH ×2 (08:19→16:55)
[2019-04-11] MEDS: ARIPiprazole 10 MG TABLET PO SCH (08:19)
[2019-04-11] MEDS: NYSTATIN 15 GM POWDER BOTTLE TP SCH ×2 (08:19→16:57)
[2019-04-11 10:42] LABS: GLUCOMETER DEV NAME(LOC) BV3S.; GLUCOSE,POINT OF CARE 266 MG/DL (70-110)
[2019-04-11 16:00] VITALS: BP 121/77
[2019-04-11 16:16] LABS: GLUCOMETER DEV NAME(LOC) BV3S.; GLUCOSE,POINT OF CARE 134 MG/DL (70-110)
[2019-04-11 20:43] LABS: GLUCOMETER DEV NAME(LOC) BV3S.; GLUCOSE,POINT OF CARE 148 MG/DL (70-110)
[2019-04-11] MEDS: INSULIN GLARGINE,HUM.REC.ANLOG 100 UNITS/ML SQ SCH (21:04)
[2019-04-11] MEDS: ZOLPIDEM TARTRATE 10 MG TABLET PO PRN (22:41)
[2019-04-12 03:39] VITALS: BP 115/75
[2019-04-12 06:39] LABS: GLUCOMETER DEV NAME(LOC) BV3S.; GLUCOSE,POINT OF CARE 123 MG/DL (70-110)
[2019-04-12] MEDS: MetFORMIN HCL 500 MG TABLET PO SCH ×2 (07:00→18:24)
[2019-04-12 08:21] VITALS: BP 120/66
[2019-04-12] MEDS: NYSTATIN 15 GM POWDER BOTTLE TP SCH ×2 (08:21→20:30)
[2019-04-12] MEDS: ARIPiprazole 10 MG TABLET PO SCH (08:21)
[2019-04-12] MEDS: MULTIVITAMINS WITH MINERALS, THERAPEUTIC TABLET PO SCH (08:21)
[2019-04-12] MEDS: DIVALPROEX SODIUM 500 MG DR TABLET PO SCH ×2 (08:21→18:24)
[2019-04-12 11:21] LABS: GLUCOMETER DEV NAME(LOC) BV3S.; GLUCOSE,POINT OF CARE 211 MG/DL (70-110)
[2019-04-12 16:11] VITALS: BP 119/71
[2019-04-12 19:48] LABS: GLUCOMETER DEV NAME(LOC) BV3N.; GLUCOSE,POINT OF CARE 285 MG/DL (70-110)
[2019-04-12 20:19] LABS: GLUCOMETER DEV NAME(LOC) BV3S.; GLUCOSE,POINT OF CARE 363 MG/DL (70-110)
[2019-04-12] MEDS: INSULIN GLARGINE,HUM.REC.ANLOG 100 UNITS/ML SQ SCH (20:28)
[2019-04-12] MEDS: LORazepam 1 MG TABLET PO PRN (21:02)
[2019-04-13 05:59] VITALS: BP 140/89
[2019-04-13] MEDS: MetFORMIN HCL 500 MG TABLET PO SCH ×2 (06:55→16:52)
[2019-04-13 08:32] VITALS: BP 111/72
[2019-04-13] MEDS: NYSTATIN 15 GM POWDER BOTTLE TP SCH ×2 (09:00→17:00)
[2019-04-13] MEDS: DIVALPROEX SODIUM 500 MG DR TABLET PO SCH ×2 (09:24→16:52)
[2019-04-13] MEDS: ARIPiprazole 10 MG TABLET PO SCH (09:24)
[2019-04-13] MEDS: MULTIVITAMINS WITH MINERALS, THERAPEUTIC TABLET PO SCH (09:24)
[2019-04-13 11:49] LABS: GLUCOMETER DEV NAME(LOC) BV3S.; GLUCOSE,POINT OF CARE 122 MG/DL (70-110)
[2019-04-13 16:22] VITALS: BP 117/70
[2019-04-13] MEDS: LORazepam 1 MG TABLET PO PRN (16:52)
[2019-04-13] MEDS: INSULIN GLARGINE,HUM.REC.ANLOG 100 UNITS/ML SQ SCH (21:40)
[2019-04-13 21:53] LABS: GLUCOMETER DEV NAME(LOC) BV3S.; GLUCOSE,POINT OF CARE 158 MG/DL (70-110)
[2019-04-13 21:53] LABS: GLUCOMETER DEV NAME(LOC) BV3S.; GLUCOSE,POINT OF CARE 142 MG/DL (70-110)
[2019-04-14 00:58] VITALS: BP 130/76
[2019-04-14 06:21] LABS: GLUCOMETER DEV NAME(LOC) BV3S.; GLUCOSE,POINT OF CARE 234 MG/DL (70-110)
[2019-04-14] MEDS: MetFORMIN HCL 500 MG TABLET PO SCH (07:01)
[2019-04-14 08:05] VITALS: BP 128/69
[2019-04-14] MEDS: DIVALPROEX SODIUM 500 MG DR TABLET PO SCH (08:53)
[2019-04-14] MEDS: ARIPiprazole 10 MG TABLET PO SCH (08:53)
[2019-04-14] MEDS: MULTIVITAMINS WITH MINERALS, THERAPEUTIC TABLET PO SCH (08:53)
[2019-04-14] MEDS: NYSTATIN 15 GM POWDER BOTTLE TP SCH (08:54)
[2019-04-14] MEDS ORDERED: INSLAN SQ (11:16)
[2019-04-14] MEDS ORDERED: NYST15PO3 TP (11:16)
[2019-04-14 16:00] VITALS: BP 131/85
== END 2019-04-14 20:02 | disposition home or self-care (01) | DRG 750 ==
LOC: EMS 20:18 → B2S 04-07 00:50 → B3A 04-10 16:33
PROVIDERS: ADMIT Psychiatry & Neurology Psychiatry; ATTEND Psychiatry & Neurology Psychiatry
DX: F25.1 Schizoaffective disorder, depressive type (principal); E11.9 Type 2 diabetes mellitus without complications; R45.851 Suicidal ideations; F12.90 Cannabis use, unspecified, uncomplicated; F17.200 Nicotine dependence, unspecified, uncomplicated; G89.29 Other chronic pain; I10 Essential (primary) hypertension; F19.10 Other psychoactive substance abuse, uncomplicated; J44.9 Chronic obstructive pulmonary disease, unspecified; Z59.0 Homelessness; Z71.6 Tobacco abuse counseling; Z91.5 Personal history of self-harm
CPT/HCPCS: 87081; G0480; J1815; Q0162